=== PATIENT | female | born 1985 | race African-American/Black ===

== ENCOUNTER 2023-07-17 08:44 | Outpatient (CLI) | payer OTHER ==
[~2023-07-17 08:44] MED LIST: CHOL500013 PO; ETHA400T31 PO; ISON300T19 PO; LINA5TAB2 PO; METF-379 PO; ONDA-8 PO; PYRA500T32 PO; Pyridoxine Hcl PO; RIFA300C9 PO
[2023-07-17 09:48] LABS: ALBUMIN 3.8 g/dL (3.4-4.8); BILIRUBIN,DIRECT 0.1 mg/dL (0.0-0.3); TOTAL BILIRUBIN 0.2 mg/dL (0.0-1.0); TOTAL PROTEIN, SERUM 8.2 g/dL (6.4-8.3)
== END 2023-07-17 19:32 | disposition home or self-care (01) ==
LOC: SRD 08:44
PROVIDERS: ATTEND Internal Medicine Infectious Disease
DX: Z22.7 Latent tuberculosis (principal); A31.9 Mycobacterial infection, unspecified
CPT/HCPCS: 36415; 71046-TC; 80076

== ENCOUNTER 2023-07-24 09:14 | Outpatient (CLI) | payer OTHER ==
[~2023-07-24] VITALS: Ht 165.1 cm; Wt 70.3 kg
[2023-07-24] MEDS ORDERED: SODIUM CL 3% FOR INHALATION 15 ML VIAL.NEB INH ONE ×2 (09:45→09:57)
[2023-07-24 10:10] VITALS: O2SAT 98
== END 2023-07-24 11:00 | disposition home or self-care (01) ==
LOC: SLB 09:14 → SMU 10:30 → SLB 11:00
PROVIDERS: ATTEND Internal Medicine Infectious Disease
DX: A15.9 Respiratory tuberculosis unspecified (principal)
CPT/HCPCS: 94640; J7131